=== PATIENT | male | born 1995 | race Caucasian/White ===

== ENCOUNTER 2018-04-26 14:25 | Emergency (ER) | payer BC, OTHER ==
--- NOTE | 2018-04-26 15:05 | EDM.PDOC ---
<Narda Brownlee - Last Filed: 04/26/18 15:26> ED HPI GENERAL MEDICAL PROBLEM - General Chief Complaint: ENT Problem Stated Complaint: DENTAL COMPLAINT Time Seen by Provider: 04/26/18 14:45 Source of Information: Reports: Patient History Limitations: Reports: No Limitations - History of Present Illness INITIAL COMMENTS - FREE TEXT/NARRATIVE: 22 yo male presents to ED for tooth pain and swelling. He reports a sudden onset of swelling and drainage from the area yesterday. He does report a mild toothache in that region for some time now and admits to not taking care of his teeth. He has drainage from the area which is making him nauseous. He reports feeling warm with chills but does not have a documented fever. He states the area is becoming more swollen and giving him a headache. He has not recently been on antibiotics, but reports multiple tooth abscesses in the past. 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 Left Oral/Mouth Pain Score (Numeric/FACES): 6 - Related Data Allergies Allergy/AdvReac Type Severity Reaction Status Date / Time No Known Allergies Allergy Verified 04/26/18 14:37 Home Meds: Home Meds Amoxicillin/Potassium Clav [Augmentin 875-125 Tablet] 1 each PO BID #20 tablet 04/26/18 [Rx] Past Medical History - Past Health History Medical/Surgical History: Denies Medical/Surgical History Social & Family History - Tobacco Use Smoking Status *Q: Current Every Day Smoker Years of Tobacco use: 10 Packs/Tins Daily: 1 - Caffeine Use Caffeine Use: Reports: Coffee, Energy Drinks, Soda, Tea - Recreational Drug Use Recreational Drug Use: Yes Drug Use in Last 12 Months: Yes Recreational Drug Type: Reports: Marijuana/Hashish, Methamphetamine Recreational Drug Use Frequency: Not Used In Over 1 Month ED ROS ENT - Review of Systems Review Of Systems: See Below Constitutional: Reports: Fever (subjective), Chills HEENT: Reports: Dental Pain Respiratory: Reports: No Symptoms Cardiovascular: Reports: No Symptoms Endocrine: Reports: No Symptoms GI/Abdominal: Reports: Nausea. Denies: Abdominal Pain, Constipation, Diarrhea, Vomiting Skin: Reports: No Symptoms Neurological: Reports: Headache. Denies: Dizziness Psychiatric: Reports: No Symptoms ED EXAM, ENT - Physical Exam Exam: See Below Exam Limited By: No Limitations General Appearance: Alert, WD/WN, No Apparent Distress Mouth/Throat: Normal Lips, Normal Oropharynx, Dental Pain, Gum Swelling, Other ( poor dentition throughout, yellow-green discharge from affected area). No: Tonsillar Swelling, Uvular Deviation Head: Atraumatic, Normocephalic, Facial Swelling (left side, maxillary region), Facial Tenderness Neck: Normal Inspection, Non-Tender, Full Range of Motion Respiratory/Chest: No Respiratory Distress, Lungs Clear, Normal Breath Sounds, No Accessory Muscle Use Cardiovascular: Normal Peripheral Pulses, Regular Rate, Rhythm, No Gallop, No Murmur, No Rub Neurological: Alert, Oriented, Normal Cognition Psychiatric: Normal Affect, Normal Mood Skin: Warm, Dry, Intact, Normal Color, No Rash Course - Vital Signs Last Recorded V/S: Last Vital Signs Temp 98.2 F 04/26/18 14:35 Pulse 93 04/26/18 14:35 Resp 16 04/26/18 14:35 BP 134/86 04/26/18 14:35 Pulse Ox 100 04/26/18 14:35 - Orders/Labs/Meds Meds: Medications Discontinued Medications Generic Name Dose Route Start Last Admin Trade Name Tonyq PRN Reason Stop Dose Admin Amoxicillin/Clavulanate Potassium 1 tab 04/26/18 15:21 04/26/18 15:33 Augmentin 875 Mg/125 Mg PO 04/26/18 15:22 1 tab ONETIME ONE Administration Ceftriaxone Sodium 1 gm/ 0 gm 04/26/18 15:30 Lidocaine HCl 2.1 ml IM Q24H NITO Ceftriaxone Sodium 1 gm/ 0 gm 04/26/18 15:22 04/26/18 15:33 Lidocaine HCl 2.1 ml IM 04/26/18 15:23 1 inj ONETIME ONE Administration Departure - Departure Disposition: Home, Self-Care 01 Clinical Impression: Dental abscess - Discharge Information Prescriptions: Amoxicillin/Potassium Clav [Augmentin 875-125 Tablet] 1 each PO BID #20 tablet Instructions: Dental Abscess Referrals: PCP,None [Primary Care Provider] - Forms: ED Department Discharge Additional Instructions: Take the full course of Augmentin as prescribed. Apply warm compresses to the cheek as needed throughout the course of the day. Utilize Tylenol and ibuprofen in alternating fashion for pain. See a dentist for definitive treatment. Return to ED if he developed any new or worsening symptoms. <Ron Cardozo O - Last Filed: 04/26/18 16:17> Course - Re-Assessments/Exams Free Text/Narrative Re-Assessment/Exam: Agree with history of present illness and physical examination. Patient has an abscess to the left upper gumline that is draining currently. Mild swelling to the cheek with slight tenderness noted. He has severe poor dentition. Treatment will consist of Rocephin with lidocaine 1 g IM and also Augmentin 1 tab by mouth order here in the ED. He'll be discharged home with a prescription for Augmentin. Discharge instructions as documented. Departure - Departure Time of Disposition: 16:15 Condition: Good
[2018-04-26] MEDS ORDERED: Amoxicillin/Clavulanate K 875-125 MG Tab PO ONE (15:21)
[2018-04-26] MEDS ORDERED: cefTRIAXone 1 GM, Lidocaine 1% 2.1 ML IM ONE ×2 (15:22)
[2018-04-26] MEDS ORDERED: cefTRIAXone 1 GM, Lidocaine 1% 2.1 ML IM SCH ×2 (15:30)
== END 2018-04-26 16:20 | disposition home or self-care (01) ==
LOC: JD.ED 14:25
DX: K04.7 Periapical abscess without sinus (principal); F17.210 Nicotine dependence, cigarettes, uncomplicated
CPT/HCPCS: 96372; 99283; A9270; J0696